=== PATIENT | female | born 1975 | race Caucasian/White ===

== ENCOUNTER → 2016-08-02 | Outpatient (CLI) | payer OTHER ==
--- NOTE | 2016-08-02 15:29 | CARD ---
APPROVED REPORT EXAM: Two-dimensional and M-mode echocardiogram with Doppler and color Doppler. Other Information Quality : Average Rhythm : NSR INDICATION Palpitations Chest Pain 2D DIMENSIONS RVDd2.1 (2.9-3.5cm)Left Atrium(2D)2.6 (1.6-4.0cm) IVSd1.0 (0.7-1.1cm)Aortic Root(2D)2.8 (2.0-3.7cm) LVDd4.2 (3.9-5.9cm)LVOT Diameter2.0 (1.8-2.4cm) PWd1.1 (0.7-1.1cm)LVDs2.6 (2.5-4.0cm) FS (%) 33.6 %SV53.8 ml LVEF(%)60.0 (>50%) Aortic Valve AoV Peak [place].152.2cm/sAoV VTI25.1cm AO Peak GR.9.3mmHgLVOT Peak [place].139.3cm/s LVOT VTI 24.88cmAO Mean GR.5mmHg MICHELLE (VMAX)2.65es3EFZ (VTI)3.09cm2 Mitral Valve MV DECEL [id number] E Mean Gr.3mmHg MV [id number] A [id number] MVA (PHT)5.61cm2 Pulmonary Valve PV Peak Fopkvdme930.7cm/sPV Peak Grad.4mmHg RVOT VTI20.1cm Tricuspid Valve TR P. Khayzsuk768ez/sRAP CCYLHEJL2shQg TR Peak Gr.43ucDkUTRT97xvEw Pulmonary Vein S1 Essjplbg68.6cm/sD2 Vuogjjhv81.3cm/s LEFT VENTRICLE The left ventricle is normal size. There is normal left ventricular wall thickness. Left ventricle sy stolic function is normal. The Ejection Fraction is 60%. There is normal LV segmental wall motion. Th e left ventricular diastolic function and filling is normal for age. RIGHT VENTRICLE The right ventricle is normal size. The right ventricular systolic function is normal. ATRIA The left atrium size is normal. The right atrium size is normal. The interatrial septum is intact wit h no evidence for an atrial septal defect or patent foramen ovale as noted on 2-D or Doppler imaging. AORTIC VALVE The aortic valve is normal in structure and function. The aortic valve is trileaflet. Doppler and Col or Flow revealed no significant aortic regurgitation. There is no significant aortic valvular stenosi s. MITRAL VALVE The mitral valve is normal in structure and function. There is no mitral valve stenosis. Doppler and Color Flow revealed no mitral valve regurgitation noted. TRICUSPID VALVE The tricuspid valve is normal in structure Doppler and Color Flow revealed trace to mild tricuspid re gurgitation. The PA pressure was estimated at 27 mmHg. There is no tricuspid valve stenosis. PULMONIC VALVE The pulmonic valve is not well visualized. Doppler and Color Flow revealed no pulmonic valvular regur gitation. There is no pulmonic valvular stenosis. GREAT VESSELS The aortic root is normal in size. Normal pulmonary venous flow (Doppler). The IVC is normal in size and collapses >50% with inspiration. PERICARDIAL EFFUSION There is no evidence of significant pericardial effusion. Critical Notification Critical Value: No <Conclusion> Left ventricle systolic function is normal. The Ejection Fraction is 60%. The left atrium size is normal. The right atrium size is normal. The aortic valve is normal in structure and function. The aortic valve is trileaflet. The mitral valve is normal in structure and function. Doppler and Color Flow revealed trace to mild tricuspid regurgitation. The PA pressure was estimated at 27 mmHg. The pulmonic valve is not well visualized. There is no evidence of significant pericardial effusion.
== END | disposition home or self-care (01) ==
LOC: ECHO 08:21
PROVIDERS: ATTEND Internal Medicine Cardiovascular Disease
DX: I07.1 Rheumatic tricuspid insufficiency (principal); R06.02 Shortness of breath; R00.2 Palpitations; R53.83 Other fatigue
CPT/HCPCS: 93225; 93306

== ENCOUNTER 2016-10-07 11:19 | Emergency (ER) | payer OTHER ==
[~2016-10-07] VITALS: Ht 162.6 cm; Wt 104.3 kg
[2016-10-07] MEDS ORDERED: PANTOPRAZOLE IV PUSH 40 MG VIAL. IVP ONE (11:45)
[2016-10-07] MEDS ORDERED: IV NORMAL SALINE 1000ML BAG 1,000 ML IV ONE (11:45)
[2016-10-07] MEDS ORDERED: MORPHINE SULFATE 10 MG/ML VIAL. IV ONE (11:45)
[2016-10-07] MEDS ORDERED: ONDANSETRON PF 4 MG/2 ML VIAL. IV ONE (11:45)
--- NOTE | 2016-10-07 12:01 | PHYS DOC ---
Past Medical History Past Medical History: Other Additional Past Medical Histor: SINUS TACH Past Surgical History: , Tubal ligation Alcohol Use: None Drug Use: None Adult General Chief Complaint Chief Complaint: ABDOMINAL PAIN HPI HPI Patient is a 41 year old female presenting to the emergency department for evaluation of abdominal pain that started 3-4 days ago and has persisted. Pain is fairly diffuse and she says it is starting in her epigastrium and right upper quadrant and then radiates down into her suprapubic area and that is where she says the pain is the most intense. She has nausea vomiting and diarrhea with it. Her only abdominal surgery is a . No fevers chills dysuria hematuria vaginal bleeding or vaginal discharge. Review of Systems Review of Systems Constitutional: Denies fever or chills [] Eyes: Denies change in visual acuity, redness, or eye pain [] HENT: Denies nasal congestion or sore throat [] Respiratory: Denies cough or shortness of breath [] Cardiovascular: No additional information not addressed in HPI [] GI: + abdominal pain, nausea, vomiting, diarrhea [] : Denies dysuria or hematuria [] Musculoskeletal: Denies back pain or joint pain [] Integument: Denies rash or skin lesions [] Neurologic: Denies headache, focal weakness or sensory changes [] Current Medications Current Medications Current Medications Medications (Trade) Dose Ordered Sig/Kory Start Time Stop Time Status Last Admin Dose Admin Iohexol (Omnipaque 300 Mg/ml) 75 ml 1X ONCE 10/07/16 13:00 10/07/16 13:05 DC 10/07/16 12:57 75 ML Morphine Sulfate 5 mg 1X ONCE 10/07/16 11:45 10/07/16 11:46 DC 10/07/16 12:06 5 MG Ondansetron HCl (Zofran) 8 mg 1X ONCE 10/07/16 11:45 10/07/16 11:46 DC 10/07/16 12:05 8 MG Pantoprazole Sodium (Protonix Vial) 40 mg 1X ONCE 10/07/16 11:45 10/07/16 11:46 DC 10/07/16 12:05 40 MG Sodium Chloride 1,000 ml @ 1,000 mls/hr 1X ONCE 10/07/16 11:45 10/07/16 12:44 DC 10/07/16 12:05 1,000 MLS/HR Allergies Allergies Allergies Coded Allergies Type Severity Reaction Last Updated Verified Sulfa (Sulfonamide Antibiotics) Allergy Unknown 10/07/16 Yes latex Allergy Unknown 10/07/16 Yes peanut Allergy Unknown 10/07/16 Yes Physical Exam Physical Exam Constitutional: Well developed, well nourished, no acute distress, non-toxic appearance. [] HENT: Normocephalic, atraumatic, bilateral external ears normal, oropharynx moist, no oral exudates, nose normal. [] Eyes: PERRLA, EOMI, conjunctiva normal, no discharge. [] Neck: Normal range of motion, no tenderness, supple, no stridor. [] Cardiovascular:Heart rate regular rhythm, no murmur [] Lungs & Thorax: Bilateral breath sounds clear to auscultation [] Abdomen: Bowel sounds normal, soft, + diffuse tenderness, no rebound or guarding , no masses, no pulsatile masses. [] Skin: Warm, dry, no erythema, no rash. [] Back: No tenderness, no CVA tenderness. [] Extremities: No tenderness, no cyanosis, no clubbing, ROM intact, no edema. [] Neurologic: Alert and oriented X 3, normal motor function, normal sensory function, no focal deficits noted. [] Current Patient Data Vital Signs Vital Signs Date Time Temp Pulse Resp B/P (MAP) Pulse Ox O2 Delivery O2 Flow Rate FiO2 10/07/16 14:44 94 16 130/79 (96) 94 Room Air 10/07/16 11:25 98.2 98.2 Lab Values Laboratory Tests Test 10/07/16 10:41 10/07/16 11:35 10/07/16 11:50 POC Urine HCG, Qualitative Hcg negative (Negative) Urine Collection Type Unknown Urine Color Yellow Urine Clarity Turbid Urine pH 7.0 Urine Specific [place] 1.025 Urine Protein Negative mg/dL (NEG-TRACE) Urine Glucose (UA) Negative mg/dL (NEG) Urine Ketones (Stick) Negative mg/dL (NEG) Urine Blood Negative (NEG) Urine Nitrite Negative (NEG) Urine Bilirubin Negative (NEG) Urine Urobilinogen Dipstick 0.2 mg/dL (0.2 mg/dL) Urine Leukocyte Esterase Negative (NEG) Urine RBC 0 /HPF (0-2) Urine WBC 0 /HPF (0-4) Urine Squamous Epithelial Cells Many /LPF Urine Bacteria 0 /HPF (0-FEW) White Blood Count 14.7 x10^3/uL (4.0-11.0) H Red Blood Count 4.77 x10^6/uL (3.50-5.40) Hemoglobin 13.4 g/dL (12.0-15.5) Hematocrit 41.2 % (36.0-47.0) Mean Corpuscular Volume 86 fL (79-100) Mean Corpuscular Hemoglobin 28 pg (25-35) Mean Corpuscular Hemoglobin Concent 32 g/dL (31-37) Red Cell Distribution Width 14.5 % (11.5-14.5) Platelet Count 333 x10^3/uL (140-400) Neutrophils (%) (Auto) 68 % (31-73) Lymphocytes (%) (Auto) 25 % (24-48) Monocytes (%) (Auto) 6 % (0-9) Eosinophils (%) (Auto) 1 % (0-3) Basophils (%) (Auto) 1 % (0-3) Neutrophils # (Auto) 9.9 x10^3uL (1.8-7.7) H Lymphocytes # (Auto) 3.7 x10^3/uL (1.0-4.8) Monocytes # (Auto) 0.8 x10^3/uL (0.0-1.1) Eosinophils # (Auto) 0.1 x10^3/uL (0.0-0.7) Basophils # (Auto) 0.1 x10^3/uL (0.0-0.2) Sodium Level 142 mmol/L (136-145) Potassium Level 3.7 mmol/L (3.5-5.1) Chloride Level 106 mmol/L (98-107) Carbon Dioxide Level 30 mmol/L (21-32) Anion Gap 6 (6-14) Blood Urea Nitrogen 10 mg/dL (7-20) Creatinine 0.9 mg/dL (0.6-1.0) Estimated GFR (Cockcroft-Gault) 68.7 BUN/Creatinine Ratio 11 (6-20) Glucose Level 102 mg/dL (70-99) H Calcium Level 8.5 mg/dL (8.5-10.1) Magnesium Level 2.1 mg/dL (1.8-2.4) Total Bilirubin 0.3 mg/dL (0.2-1.0) Aspartate Amino Transferase (AST) 12 U/L (15-37) L Alanine Aminotransferase (ALT) 18 U/L (14-59) Alkaline Phosphatase 72 U/L (46-116) Total Protein 7.3 g/dL (6.4-8.2) Albumin 3.2 g/dL (3.4-5.0) L Albumin/Globulin Ratio 0.8 (1.0-1.7) L Lipase 106 U/L (73-393) Laboratory Tests 10/07/16 11:50 Laboratory Tests 10/07/16 11:50 EKG EKG [] Radiology/Procedures Radiology/Procedures Indication: Abdominal pain for 3 days, greatest in right upper quadrant. Technique: Axial images and coronal and sagittal reformatted images are provided. 75 mL of intravenous Omnipaque 300 was administered. No comparison is available. One or more of the following individualized dose reduction techniques were utilized for this examination: 1. Automated exposure control 2. Adjustment of the mA and/or kV according to patient size 3. Use of iterative reconstruction technique Findings: The lung bases are clear. There is no pleural effusion. The heart is not enlarged. There is fatty infiltration of the liver. Gallbladder is unremarkable. Spleen is not enlarged. Pancreas is unremarkable. Right adrenal myelolipoma is noted. Calcifications in both adrenals may be related to prior hemorrhage. Kidneys are symmetrically perfused. Aorta is normal caliber. There is no small bowel obstruction or mural thickening. There are diverticula in the colon without findings of diverticulitis. Normal appendix is noted along the inferior margin of the liver. There is no adnexal mass. Bladder is unremarkable. There is no free pelvic fluid. There are degenerative changes in the spine. Impression: 1. No acute abdominal findings. 2. Fatty infiltration of the liver. 3. Diverticulosis in the colon. DICTATED and SIGNED BY: KETTY GALLARDO MD DATE: 10/07/16 2730 Course & Med Decision Making Course & Med Decision Making Patient says that she has been having elevated inflammatory markers and elevated white count for one year. She is supposed to see the kinesiologist. Given this abdominal pain is coming and going a consideration for an inflammatory bowel disease has to be considered. Either way she has repeat normal abdominal exam and her pain is gone and her pain is controlled here so she'll be discharged with supportive treatment told to follow with a GI physician and come back to the ER sooner with any worsening pain fevers vomiting or other general concerns. Patient aware and agreeable with plan and verbalized understanding of the above instructions. [place] Disclaimer Dragon Disclaimer This electronic medical record was generated, in whole or in part, using a voice recognition dictation system. Departure Departure Impression: Primary Impression: Abdominal pain Additional Impressions: Nausea & vomiting Diarrhea Leukocytosis Disposition: HOME, SELF-CARE Condition: GOOD Referrals: JORGE NICOLE MD Patient Instructions: Abdominal Pain (Nonspecific) Additional Instructions: Try taking 20 mg of Prilosec OTC daily in addition to drinking plenty of fluids. Scripts Ondansetron (ZOFRAN ODT) 4 Mg Tab.rapdis 4 MG PO BID Y for NAUSEA/VOMITING, #14 TAB Prov: CEDRIC CORTEZ DO 10/07/16 Hydrocodone/Apap 5-325 (NORCO 5-325 TABLET) 1 Each Tablet 1 TAB PO PRN Q6HRS Y for PAIN, #20 TAB 0 Refills Prov: CEDRIC CORTEZ DO 10/07/16 Problem Qualifiers Primary Impression: Abdominal pain Abdominal location: generalized Qualified Codes: R10.84 - Generalized abdominal pain CEDRIC CORTEZ DO October 07, 2016 12:00
[2016-10-07 12:03] LABS: BASO # 0.1 x10^3/uL (0.0-0.2); BASO % 1 % (0-3); EOS % 1 % (0-3); HEMATOCRIT 41.2 % (36.0-47.0); HEMOGLOBIN 13.4 g/dL (12.0-15.5); LYMPH # 3.7 x10^3/uL (1.0-4.8); LYMPH % 25 % (24-48); MEAN CORPUSCULAR HEMOGLOBIN 28 pg (25-35); MEAN CORPUSCULAR HGB CONC 32 g/dL (31-37); MEAN CORPUSCULAR VOLUME 86 fL (79-100); MONO % 6 % (0-9); NEUT % 68 % (31-73); PLATELET COUNT 333 x10^3/uL (140-400); RED BLOOD COUNT 4.77 x10^6/uL (3.50-5.40); RED CELL DISTRIBUTION WIDTH 14.5 % (11.5-14.5); WHITE BLOOD COUNT 14.7 x10^3/uL (4.0-11.0)
[2016-10-07 12:04] LABS: BILIRUBIN,URINE NEGATIVE (NEG); GLUCOSE,URINE NEGATIVE (NEG); NITRITE,URINE NEGATIVE (NEG); PROTEIN,URINE NEGATIVE (NEG-TRACE); UROBILINOGEN,URINE 0.2 mg/dL (0.2 mg/dL)
[2016-10-07 12:16] LABS: CALCIUM 8.5 mg/dL (8.5-10.1); CREATININE 0.9 mg/dL (0.6-1.0); GFR 68.7; POTASSIUM 3.7 mmol/L (3.5-5.1)
[2016-10-07 12:21] LABS: BACTERIA,URINE 0 /HPF (0-FEW); RBC,URINE 0 /HPF (0-2); SQUAMOUS EPITHELIAL CELL,UR MANY /LPF; WBC,URINE 0 /HPF (0-4)
[2016-10-07 12:23] LABS: ALBUMIN 3.2 g/dL (3.4-5.0); ALBUMIN/GLOBULIN RATIO 0.8 (1.0-1.7); MAGNESIUM 2.1 mg/dL (1.8-2.4); TOTAL BILIRUBIN 0.3 mg/dL (0.2-1.0); TOTAL PROTEIN 7.3 g/dL (6.4-8.2)
[2016-10-07] MEDS ORDERED: IOHEXOL 300 MG/ML 75 ML VIAL IV ONE (13:00)
--- NOTE | 2016-10-07 13:27 | RAD ---
Indication: Abdominal pain for 3 days, greatest in right upper quadrant. Technique: Axial images and coronal and sagittal reformatted images are provided. 75 mL of intravenous Omnipaque 300 was administered. No comparison is available. One or more of the following individualized dose reduction techniques were utilized for this examination: 1. Automated exposure control 2. Adjustment of the mA and/or kV according to patient size 3. Use of iterative reconstruction technique Findings: The lung bases are clear. There is no pleural effusion. The heart is not enlarged. There is fatty infiltration of the liver. Gallbladder is unremarkable. Spleen is not enlarged. Pancreas is unremarkable. Right adrenal myelolipoma is noted. Calcifications in both adrenals may be related to prior hemorrhage. Kidneys are symmetrically perfused. Aorta is normal caliber. There is no small bowel obstruction or mural thickening. There are diverticula in the colon without findings of diverticulitis. Normal appendix is noted along the inferior margin of the liver. There is no adnexal mass. Bladder is unremarkable. There is no free pelvic fluid. There are degenerative changes in the spine. Impression: 1. No acute abdominal findings. 2. Fatty infiltration of the liver. 3. Diverticulosis in the colon.
[2016-10-07] MEDS ORDERED: ONDA4TAB10 PO (13:58)
[2016-10-07] MEDS ORDERED: HYDR-971 PO (13:58)
[2016-10-07 14:44] VITALS: BP 130/79
== END 2016-10-07 14:45 | disposition home or self-care (01) ==
LOC: ER 12:51
DX: R10.84 Generalized abdominal pain (principal); R11.2 Nausea with vomiting, unspecified; R10.11 Right upper quadrant pain; R19.7 Diarrhea, unspecified; D72.829 Elevated white blood cell count, unspecified; R10.13 Epigastric pain; Z91.010 Allergy to peanuts; Z88.2 Allergy status to sulfonamides; Z91.040 Latex allergy status; Z98.890 Other specified postprocedural states; Z98.51 Tubal ligation status
CPT/HCPCS: 36415; 74177; 80053; 81001; 81025; 83690; 83735; 85027; 96361; 96374; 96375; 99285; C9113; J2270; J2405; J7030; Q9967

== ENCOUNTER 2017-01-15 07:21 | Emergency (ER) | payer OTHER ==
[~2017-01-15 07:21] MED LIST: HYDR-971 PO; ONDA4TAB10 PO
[2017-01-15 10:43] LABS: ALBUMIN 3.2 g/dL (3.4-5.0); ALBUMIN/GLOBULIN RATIO 0.7 (1.0-1.7); CALCIUM 8.8 mg/dL (8.5-10.1); CREATININE 0.8 mg/dL (0.6-1.0); GFR 78.7; POTASSIUM 3.9 mmol/L (3.5-5.1); TOTAL BILIRUBIN 0.5 mg/dL (0.2-1.0); TOTAL PROTEIN 7.7 g/dL (6.4-8.2)
[2017-01-15 10:58] LABS: HEMATOCRIT 41.5 % (36.0-47.0); HEMOGLOBIN 13.6 g/dL (12.0-15.5); MEAN CORPUSCULAR HEMOGLOBIN 28 pg (25-35); MEAN CORPUSCULAR VOLUME 85 fL (79-100); RED BLOOD COUNT 4.87 x10^6/uL (3.50-5.40); WHITE BLOOD COUNT 19.5 x10^3/uL (4.0-11.0)
[2017-01-15 10:59] LABS: BASO % 0 % (0-3); EOS % 1 % (0-3); LYMPH % 13 % (24-48); MEAN CORPUSCULAR HGB CONC 33 g/dL (31-37); MONO % 7 % (0-9); NEUT % 79 % (31-73); PLATELET COUNT 317 x10^3/uL (140-400); RED CELL DISTRIBUTION WIDTH 14.7 % (11.5-14.5)
[2017-01-15 11:00] LABS: BILIRUBIN,URINE NEGATIVE (NEG); GLUCOSE,URINE NEGATIVE (NEG); NITRITE,URINE NEGATIVE (NEG); PROTEIN,URINE NEGATIVE (NEG-TRACE); RBC,URINE 0 /HPF (0-2); UROBILINOGEN,URINE 0.2 mg/dL (0.2 mg/dL); WBC,URINE OCC /HPF (0-4)
[2017-01-15 11:01] LABS: BACTERIA,URINE FEW /HPF (0-FEW); SQUAMOUS EPITHELIAL CELL,UR MANY /LPF
[2017-01-15 11:10] LABS: NEG OBC UR NEG; POS OBC UR POS
[2017-01-15] MEDS ORDERED: CIPROFLOXACIN HCL 250 MG TABLET. ONE (11:29)
[2017-01-15] MEDS ORDERED: MORPHINE SULFATE 10 MG/ML VIAL. ONE (11:30)
[2017-01-15] MEDS ORDERED: metroNIDAZOLE 500 MG TABLET ONE (11:30)
[2017-01-15] MEDS ORDERED: ONDANSETRON PF 4 MG/2 ML VIAL. ONE (11:31)
--- NOTE | 2017-01-15 12:23 | RAD ---
CT scan of the abdomen and pelvis with contrast 01/15/2017 Clinical history: Lower abdominal pain. Technique: After the intravenous administration of 75 cc of Omnipaque 300, contiguous, 5 mm axial sections were obtained through the abdomen and pelvis. One or more of the following individualized dose reduction techniques were utilized for this study: 1. Automated exposure control. 2. Adjustment of the mA and/or kV according to patient size. 3. Use of iterative reconstruction technique. Findings: Comparison study is dated 10/07/2016. Images through the lung bases demonstrate minimal dependent subsegmental atelectasis bilaterally. The liver parenchyma has a decreased attenuation consistent with mild fatty infiltration. The spleen, pancreas, and kidneys are within normal limits. Benign-appearing calcifications are seen involving the adrenal glands, unchanged. The abdominal aorta tapers normally. The gallbladder is well-distended. No free fluid or free air is within the abdomen. There is no evidence of bowel obstruction. The appendix is well visualized and is within normal limits. Multiple diverticula are seen involving the descending and sigmoid colon. Wall thickening of the mid sigmoid colon is seen. Increased density is seen within the adjacent fat. These findings are consistent with diverticulitis. No abscess is seen. Images through the pelvis demonstrate the urinary bladder distended with urine. A small amount of free fluid is seen within the pelvis. No adnexal mass is seen. The osseous structures are unchanged. Impression: Findings consistent with sigmoid diverticulitis. No abscess is seen.
[2017-01-15 14:14] LABS: % EOS 1 % (0-5); PLT ESTIMATE ADEQUATE (ADEQUATE)
== END 2017-01-15 11:57 | disposition home or self-care (01) ==
LOC: ER 07:21
DX: K57.12 Diverticulitis of small intestine without perforation or abscess without bleeding (principal); Z98.51 Tubal ligation status; Z98.890 Other specified postprocedural states; Z88.2 Allergy status to sulfonamides; Z91.040 Latex allergy status; Z91.010 Allergy to peanuts
CPT/HCPCS: 36415; 74177; 80053; 81001; 81025; 83690; 85007; 85025; 96361; 96374; 96375; 99285-25

== ENCOUNTER → 2019-12-03 | Outpatient (CLI) | payer BC, OTHER ==
[~2019-12-03] MED LIST changes: +HYDR-3164 PO; -HYDR-971 PO; +IOHEXOL 240 MG/ML 50ML VIAL. PO ONE; +IOHEXOL 300 MG/ML 100ML VIAL. IV ONE
--- NOTE | 2019-12-03 09:36 | RAD ---
EXAM: CT Abdomen with IV contrast CLINICAL HISTORY: RUQ PAIN AND NAUSEA COMPARISON: 01/15/2017, 10/07/2016 TECHNIQUE: Helical CT of the abdomen was performed following the administration of IV contrast. Axial, coronal and sagittal reformatted images were generated. ---PQRS compliance statement - One or more of the following individualized dose reduction techniques were utilized for this study: 1. Automated exposure control 2. Adjustment of the mA and/or kV according to patient size 3. Use of iterative reconstruction technique--- FINDINGS: Lower chest: Linear opacities left lower lobe likely scarring/atelectasis. Abdomen: Liver and biliary system: No focal liver lesion. Focal low-attenuation at the falciform ligament likely focal fatty infiltration. Gallbladder is normal. No biliary ductal dilatation. Spleen: Unremarkable Pancreas: Unremarkable Adrenal glands: Fat-containing right renal lesions likely adrenal myelolipoma. Calcifications within both adrenal glands possibly from prior trauma or hemorrhage. Kidneys: Symmetric nephrograms. No focal renal lesion. No hydronephrosis. Lymph nodes/retroperitoneum: No abdominal lymphadenopathy. Vessels: Aorta is normal in caliber with intermittent atherosclerotic calcifications. Bowel/Peritoneal cavity: Moderate colonic stool content is seen. Appendix is normal. No abdominal or pelvic ascites. Abdominal wall: Small fat-containing periumbilical hernia is seen. Bones: Vertebral body heights are preserved. No spondylolisthesis. IMPRESSION: 1. Fatty infiltration of the liver. 2. Gallbladder is normal. No biliary ductal dilatation. 3. Appendix is normal. 4. Colonic diverticula are seen. No evidence for acute diverticulitis. Electronically signed by: Jon David MD (12/03/2019 9:33 AM) [place] [id number]
== END | disposition home or self-care (01) ==
LOC: CT 08:13
PROVIDERS: ATTEND Specialist
DX: K57.30 Diverticulosis of large intestine without perforation or abscess without bleeding (principal); K42.9 Umbilical hernia without obstruction or gangrene; N28.89 Other specified disorders of kidney and ureter; K76.0 Fatty (change of) liver, not elsewhere classified; I70.0 Atherosclerosis of aorta
CPT/HCPCS: 74160; Q9966; Q9967